=== PATIENT | male | born 1980 | race Caucasian/White ===

== ENCOUNTER 2017-09-25 10:18 | Inpatient (IN) | payer OTHER ==
[~2017-09-25] VITALS: Ht 172.7 cm; Wt 98.9 kg
[~2017-09-25 10:18] MED LIST: AUGMENTIN 875875 MG PO; NAPROSYN500 MG PO
[2017-09-25 10:25] VITALS: BP 135/88
[2017-09-25 10:45] LABS: URINE BILIRUBIN NEGATIVE (Negative); URINE BLOOD 3+ (Negative); URINE CLARITY CLOUDY; URINE COLOR YELLOW; URINE GLUCOSE-RANDOM NEGATIVE (Negative); URINE KETONES NEGATIVE (Negative); URINE LEUKOCYTES NEGATIVE (Negative); URINE NITRITE NEGATIVE (Negative); URINE PROTEIN NEGATIVE (Negative); URINE SPECIFIC GRAVITY 1.025 (1.005-1.030); URINE UROBILINOGEN 0.2 E.U./dl (0.2-1.0)
[2017-09-25 10:48] LABS: ABSOLUTE EOSINOPHILS 0.1 thou/uL (0.0-0.7); ABSOLUTE LYMPHOCYTES 2.4 thou/uL (0.8-5.3); ABSOLUTE MONOCYTES 0.5 thou/uL (0.0-1.2); ABSOLUTE NEUTROPHILS 3.7 thou/uL (1.6-8.1); BASOPHILS 0.7 %; EOSINOPHILS 2.2 %; HEMATOCRIT 46.4 % (42.0-52.0); HEMOGLOBIN 15.9 gm/dL (14.0-18.0); MCHC 34.3 g/dL (28.0-37.0); MCV 90.3 fL (80.0-100.0); MONOCYTES 7.8 %; MPV 9.1 fl. (7.2-11.1); NUCLEATED RBCS 0 /100WBC; PLATELET COUNT* 268 thou/uL (150-400); POLYS 54.3 %; RBC 5.14 mil/uL (4.50-6.00); RDW-CV 13.4 % (10.5-14.5); WBC 6.8 thou/uL (4.0-11.0)
[2017-09-25 10:55] LABS: MUCUS >6 Heavy strn/LPF (None Seen)
[2017-09-25 10:57] LABS: CASTS None Seen /LPF (None Seen); CRYSTALS None Seen /LPF (None Seen); SQUAMOUS NONE SEEN /LPF (0-3); URINE RBC >20 Many /HPF (0-2); URINE WBC 0-5 Rare /HPF (0-5)
[2017-09-25 11:16] LABS: CALCIUM 8.8 mg/dL (8.5-10.1); CREATININE 0.8 mg/dL (0.6-1.3); POTASSIUM 4.3 mmol/L (3.5-5.1)
[2017-09-25 11:24] LABS: ALBUMIN 3.9 g/dL (3.4-5.0); TOTAL BILIRUBIN 0.4 mg/dL (<0.1-1.0); TOTAL PROTEIN 7.2 g/dL (6.4-8.2)
[2017-09-25 12:44] VITALS: BP 112/85
[2017-09-25 16:08] VITALS: BP 122/37
--- NOTE | 2017-09-25 16:49 | NUR ---
PATIENT ADMITTED TO THE UNIT AT 1300. ALERT AND ORIENTED X4. ADMISSION HISTORY AND ASSESSMENT COMPLETED AND CHARTED. VSS ON ROOM AIR. FLUIDS STARTED AND INFUSED ORDERED. PAIN HAS BEEN MANAGED WITH MEDICATION. STRAINING URINE FOR STONE BUT NONE SEEN ON THIS SHIFT. UROLOGY FOLLOWING AND WILL SEE PATIENT IN THE AM. PATIENT RESTING COMFORTABLY IN BED AND SLEEPING UPON ROUNDS. HOURLY ROUNDS MAINTAINED, CALL LIGHT WITHIN REACH, NURSING WILL CONTINUE TO MONITOR.
[2017-09-26 00:18] VITALS: BP 119/61
[2017-09-26 04:18] LABS: MCH 30.9 pg (26.0-34.0); MCHC 33.8 g/dL (28.0-37.0); MCV 91.4 fL (80.0-100.0); MPV 9.3 fl. (7.2-11.1); RBC 4.48 mil/uL (4.50-6.00); RDW-CV 13.4 % (10.5-14.5); WBC 8.4 thou/uL (4.0-11.0)
[2017-09-26 04:44] LABS: HEMOGLOBIN 13.8 gm/dL (14.0-18.0)
[2017-09-26 04:58] LABS: CALCIUM 7.4 mg/dL (8.5-10.1); CREATININE 0.8 mg/dL (0.6-1.3); MAGNESIUM 1.8 mg/dL (1.8-2.4); POTASSIUM 4.9 mmol/L (3.5-5.1)
[2017-09-26 09:40] VITALS: BP 115/79
[2017-09-26 10:33] VITALS: BP 115/79
[2017-09-26] MEDS ORDERED: FLOMAX0.4 MG PO (10:36)
[2017-09-26] MEDS ORDERED: HYDROCODON-ACE1 EAC7 PO (10:37)
[2017-09-26] MEDS ORDERED: ZOFRAN ODT4 MG PO (10:38)
--- NOTE | 2017-09-26 14:17 | NUR ---
PATIENT GIVEN DISCHARGE INSTRUCTIONS AT THIS TIME. PRESCRIPTIONS GIVEN TO EARLIER IN AM TO HAVE PRESCRIPTIONS FILLED. PATIENT TOLERATING DIET AND ORAL PAIN MEDS. ASKED FOR WORK RELEASE, DR HERRMANN PAGED. AND PATIENT VERBALIZED UNDERSTANDING IN REGARDS TO NEW MEDICATIONS AND FOLLOW UP APPOINTMENTS.
--- NOTE | 2017-09-29 16:36 | CON ---
[address] [address] CONSULTATION Name: LESLIE RODRIGUEZ Meg Room: [address] IN .R.#: [id number] Admission: 09/25/17 Attend Phys: Ledy Lopez MD Discharge: 09/26/17 Date of : 78 Report #: [id number] THIS REPORT FOR: //name// CC: MARY Lopez Physician staff DATE OF SERVICE: 09/26/2017 REFERRING PHYSICIAN: Dr. Ledy Lopez. REASON FOR CONSULTATION: Right renal calculus, left ureteral calculi with flank pain. CHIEF COMPLAINT: Left flank pain. HISTORY OF PRESENT ILLNESS: This is a 37-year-old male with no prior stone history who has had intermittent problems with sensation of pelvic pressure and frequency and urgency for the past couple of weeks. He developed left-sided flank pain radiating to the left groin and testicle. The pain became unremitting and he presented to the Emergency Department for evaluation. He was admitted for pain control and further management. Urology was consulted regarding urinary tract calculi. He denies dysuria, fever or vomiting. He has had intermittent nausea. Denies any other recent illnesses. He is not sure if he has had gross hematuria, but has noted some discolored urine. PAST MEDICAL HISTORY: As above. He states he is otherwise healthy. MEDICATIONS: He takes no routine medications. His current medication list is reviewed. He has been started on Flomax for medical expulsive therapy. ALLERGIES: INCLUDE CIPRO. FAMILY HISTORY: His mother had urinary tract stones. His mother and grandmother had renal tumors, removed. SOCIAL HISTORY: Drinks alcohol occasionally. Does not smoke tobacco. REVIEW OF SYSTEMS: As per the history of present illness. No chest pain, shortness of breath or palpitations. PHYSICAL EXAMINATION: VITAL SIGNS: Temperature 36.5, pulse 72, respirations 20, blood pressure 119/61. GENERAL: This is a 37-year-old male, in no acute distress. He is awake, alert and oriented x 3. He is accompanied [place] [address] CONSULTATION Name: LESLIE RODRIGUEZ Room: [address]#: [id number] Admission: 09/25/17 Attend Phys: Ledy Lopez MD Discharge: 09/26/17 Date of : 78 Report #: [id number] HEENT: Normocephalic, atraumatic. NECK: Supple. No JVD. LUNGS: Respiratory effort and excursion are normal. CARDIOVASCULAR: Rhythm is regular. Radial pulses are palpable. Extremities are warm. He moves all extremities well. No peripheral edema. Chest wall is nontender. ABDOMEN: Flanks are nontender. Bladder is nonpalpable. MUSCULOSKELETAL: Spine and costovertebral angles are nontender. GENITOURINARY: Reveals a normal external genitalia and an orthotopic urethral meatus. Testes are nontender with no palpable masses. LABORATORY DATA: Include sodium 144, potassium 4.9, chloride 109, CO2 27, BUN 14, creatinine 0.8, glucose 98. Hemoglobin 13.8, white count 8.4, platelet count 215,000. Urinalysis revealed greater than 20 red cells, 0-5 white cells and moderate bacteria. Noncontrast CT scan of the abdomen and pelvis revealed a 3 mm right lower pole stone as well as 3 mm left proximal ureteral calculus and a 5 mm left ureterovesical junction calculus. KUB done today shows the calculi visualized. I believe I can still see the distal ureteral calculus near the coccyx. Findings and options for management were discussed with the patient at length. We discussed inpatient/outpatient medical expulsive therapy, shockwave lithotripsy, inpatient/outpatient cystoscopy with ureteroscopic stone manipulation and stent placement. Pros and cons of these approaches were discussed in detail. The patient would like to continue medical expulsive therapy and hopes to do this as an outpatient. We will go ahead and order him a diet and p.o. pain medicine. If his pain is well controlled on that regimen, he can be sent home with a urine strainer as well as prescriptions for Flomax and [place], which are already on the chart. We will stop his Toradol. If he is managed as an outpatient, I recommend followup with me in approximately one week. I advised him about symptoms to call or return for including poor pain control, fever and difficulty with voiding. IMPRESSION: Right renal calculus and left ureteral calculi. PLAN: Medical expulsive therapy with outpatient management if his pain is controlled on p.o. medications. <ELECTRONICALLY SIGNED> By: Farhat Hardin MD 09/29/17 [id number] Hardin MD /emir
== END 2017-09-26 15:12 | disposition home or self-care (01) | DRG 694 ==
LOC: M.ERS 10:18 → M.TBA-ER 12:30 → M.ORTHSURG 12:30
PROVIDERS: Nurse Practitioner Family; ADMIT Internal Medicine
DX: N13.2 Hydronephrosis with renal and ureteral calculous obstruction (principal); Z88.1 Allergy status to other antibiotic agents; Z84.1 Family history of disorders of kidney and ureter

== ENCOUNTER 2017-10-26 06:11 | Emergency (ER) | payer OTHER ==
[~2017-10-26] VITALS: Ht 172.7 cm; Wt 99.8 kg
[~2017-10-26 06:11] MED LIST changes: +FLOMAX0.4 MG PO; +HYDROCODON-ACE1 EAC7 PO; +ZOFRAN ODT4 MG PO
[2017-10-26 06:33] LABS: URINE BILIRUBIN NEGATIVE (Negative); URINE BLOOD 3+ (Negative); URINE CLARITY CLEAR; URINE COLOR STRAW; URINE GLUCOSE-RANDOM NEGATIVE (Negative); URINE KETONES NEGATIVE (Negative); URINE LEUKOCYTES-REFLEX TRACE (Negative); URINE NITRITE-REFLEX NEGATIVE (Negative); URINE PROTEIN 1+ (Negative); URINE SPECIFIC GRAVITY >= 1.030 (1.005-1.030); URINE UROBILINOGEN 0.2 E.U./dl (0.2-1.0)
[2017-10-26 06:35] LABS: ABSOLUTE BASOPHILS 0.1 thou/uL (0.0-0.2); ABSOLUTE EOSINOPHILS 0.2 thou/uL (0.0-0.7); ABSOLUTE LYMPHOCYTES 2.5 thou/uL (0.8-5.3); ABSOLUTE MONOCYTES 0.7 thou/uL (0.0-1.2); ABSOLUTE NEUTROPHILS 4.7 thou/uL (1.6-8.1); BASOPHILS 0.7 %; EOSINOPHILS 2.2 %; HEMATOCRIT 47.7 % (42.0-52.0); HEMOGLOBIN 16.4 gm/dL (14.0-18.0); LYMPHOCYTES 30.6 %; MCH 30.8 pg (26.0-34.0); MCHC 34.5 g/dL (28.0-37.0); MCV 89.4 fL (80.0-100.0); MONOCYTES 8.1 %; NUCLEATED RBCS 0 /100WBC; PLATELET COUNT* 276 thou/uL (150-400); POLYS 58.4 %; RBC 5.33 mil/uL (4.50-6.00); RDW-CV 13.1 % (10.5-14.5)
[2017-10-26 06:40] LABS: CALCIUM 8.3 mg/dL (8.5-10.1); CREATININE 0.8 mg/dL (0.6-1.3); POTASSIUM 4.1 mmol/L (3.5-5.1)
[2017-10-26 06:53] LABS: TOTAL BILIRUBIN 0.3 mg/dL (<0.1-1.0); TOTAL PROTEIN 7.3 g/dL (6.4-8.2)
[2017-10-26 06:55] LABS: BACTERIA-REFLEX 1-9 Few /HPF (None Seen); CASTS None Seen /LPF (None Seen); CRYSTALS None Seen /LPF (None Seen); MUCUS 0-3 Light strn/LPF (None Seen); SQUAMOUS 0-3 Few /LPF (0-3); URINE RBC >20 Many /HPF (0-2); URINE WBC-REFLEX 0-5 Rare /HPF (0-5)
[2017-10-26] MEDS ORDERED: NORCO 5-325 TA1 EACH PO (08:29)
[2017-10-26] MEDS ORDERED: FLOMAX0.4 MG PO (08:29)
[2017-10-26] MEDS ORDERED: ONDANSETRON HCL4 M2 PO (08:29)
[2017-10-26] MEDS ORDERED: IBUPROFEN 800800 M1 PO (08:29)
[2017-10-26] MEDS ORDERED: BACTRIM DS TAB1 EACH PO (08:29)
[2017-10-26 08:36] VITALS: BP 101/68
--- NOTE | 2017-10-27 17:29 | EKG ---
[place] [address] ELECTROCARDIOGRAM REPORT Name: LESLIE RODRIGUEZ Room: [facility]#: [id number] Admission: 10/26/17 Attend Phys: Discharge: 10/26/17 Date of : 78 Report #: [id number] THIS REPORT FOR: //name// [facility] ED Test Date: 2017-10-26 Test Time: 07:05:34 Pat Name: LESLIE RODRIGUEZ Department: Room: Gender: M [employer] Custom: Tigre Caraballo : 1980 Requested By: Jorge Patel Order Number: [id number] MD: Kendrcik Estrella Measurements Intervals [place] Rate: 0 P: 0 ND: QRS: 0 QRSD: T: QT: QTc: 0 Interpretive Statements All 12 leads are missing No previous ECG available for comparison Electronically Signed On 10-27-2017 17:29:39 CDT by Kendrick Estrella [email or web address] <ELECTRONICALLY SIGNED> By: Kendrick Estrella MD, [facility] 10/27/17 1729 0705 0705 Kendrick Estrella MD, FACC /EPI
== END 2017-10-26 08:39 | disposition home or self-care (01) ==
LOC: M.ERS 06:11
PROVIDERS: Personal Emergency Response Attendant
DX: N20.0 Calculus of kidney (principal); Z88.1 Allergy status to other antibiotic agents